=== PATIENT | male | born 1990 | race African-American/Black ===

== ENCOUNTER 2022-08-08 08:39 | Emergency (ER) | payer BC ==
[~2022-08-08] VITALS: Ht 185.4 cm; Wt 81.6 kg
--- NOTE | 2022-08-08 08:45 | NUR ---
RECEIVED PT 32 YRS MALE WALKING IN C/O abdominale pain satrted at 4 am this morning abdomine softe nonetender to touch
--- NOTE | 2022-08-08 08:51 | NUR ---
URINE COLLECTED AND SENT
[2022-08-08] MEDS ORDERED: ONDANSETRON HCL/PF 4 MG/2 ML VIAL ONE (08:59)
[2022-08-08] MEDS ORDERED: ONDANSETRON HCL/PF 4 MG/2 ML VIAL IVP ONE (09:00)
[2022-08-08] MEDS ORDERED: MORPHINE SULFATE INJ 4 MG/ML DISP.SYRIN ONE (09:00)
[2022-08-08] MEDS ORDERED: MORPHINE SULFATE INJ 2 MG/ML DISP.SYRIN IV ONE (09:00)
[2022-08-08] MEDS ORDERED: IV NS 0.9% 1,000 ML BAG IV ONE (09:00)
--- NOTE | 2022-08-08 09:00 | NUR ---
to ct scan of abdomine
--- NOTE | 2022-08-08 09:25 | NUR ---
INSERTED ANG CATHETER G 18 ON LT AC BLOOD DROW AND SENT TO LAB
--- NOTE | 2022-08-08 09:30 | NUR ---
abdminale US DONE AT BED SIDE
[2022-08-08 09:43] LABS: BASOPHILS % (AUTO) 0.3 % (0.0-2.0); HEMATOCRIT 42 % (39-51); HEMOGLOBIN 14.1 g/dL (13.5-17.5); LYMPHOCYTES % (AUTO) 11.1 % (20.0-44.0); MEAN CORPUSCULAR HGB CONC 34 g/dl (31.0-36.0); MEAN CORPUSCULAR VOLUME 90 fL (80-96); MONOCYTES # (AUTO) 0.8 K/uL (0.1-1.30); MONOCYTES % (AUTO) 8.4 % (2.0-12.0); NEUTROPHILS # (AUTO) 7.1 K/uL (1.8-8.9); NEUTROPHILS % (AUTO) 78.2 % (43.0-81.0); PLATELET COUNT (AUTO) 226 K/uL (150-450); RED BLOOD CELL COUNT(AUTO) 4.65 MIL/uL (4.5-6.0); WHITE BLOOD COUNT (AUTO) 9.1 K/uL (4.3-11.0)
[2022-08-08 09:54] LABS: CALCIUM, SERUM 9.4 mg/dL (8.5-10.1); POTASSIUM 3.7 mmol/L (3.5-5.1)
[2022-08-08 10:01] LABS: ALBUMIN 3.6 g/dL (3.4-5.0); BILIRUBIN,DIRECT 0.2 mg/dL (0.0-0.2); BILIRUBIN,TOTAL 0.7 mg/dL (0.2-1.0); TOTAL PROTEIN, SERUM 7.7 g/dL (6.4-8.2)
[2022-08-08 10:14] LABS: BILIRUBIN,URINE 1+ (NEGATIVE); COLOR,URINE YELLOW (YELLOW); LEUKOCYTE ESTERASE ,URINE NEGATIVE (NEGATIVE); NITRITE, URINE NEGATIVE (NEGATIVE); PROTEIN,URINE TRACE mg/dl (NEGATIVE); UGLUCOSE NEGATIVE (NEGATIVE); UROBILINOGEN,URINE 0.2 EU/dL (0.2)
[2022-08-08] MEDS ORDERED: CEFTRIAXONE 1 G in IV D5W 50 ML IV ONE (10:30)
[2022-08-08] MEDS ORDERED: AZITHROMYCIN 500 MG in IV D5W 250 ML IV ONE (10:30)
--- NOTE | 2022-08-08 10:40 | NUR ---
RESTING AND ASLEEPY ON AND OFF NO SOB AT THIS TIME
[2022-08-08 11:06] LABS: BACTERIA,URINE Few /HPF (None Seen); MUCUS,URINE Few /LPF (None Seen); SQUAMOUS EPITHELIAL CELL,UR Few /HPF (None Seen); WBC,URINE 0-2 /HPF (0-3)
--- NOTE | 2022-08-08 11:25 | NUR ---
DR. ROBERTS AT BED SIDE SPOOK WITH PT ABOUT PLAN OF CARE
[2022-08-08] MEDS ORDERED: DOXY100C2 PO (12:26)
[2022-08-08] MEDS ORDERED: IBUP-1955 PO (12:26)
[2022-08-08] MEDS ORDERED: ONDA4TAB5 PO (12:26)
--- NOTE | 2022-08-08 12:47 | NUR ---
RESTING AND COOMFORTABLE AT THIS TIME TIME
--- NOTE | 2022-08-08 13:20 | NUR ---
IV removed. Catheter intact and site benign. Pressure and 4x4 applied to site. No bleeding noted.
--- NOTE | 2022-08-08 13:25 | NUR ---
Patient discharged to home in stable condition. Written and verbal after care instructions given. Patient verbalizes understanding of instruction.
[2022-08-08 13:37] VITALS: BP 125/70
== END 2022-08-08 13:37 | disposition home or self-care (01) ==
LOC: ER 08:43
DX: N20.0 Calculus of kidney (principal); J18.1 Lobar pneumonia, unspecified organism; R07.89 Other chest pain
CPT/HCPCS: 99285; 74176; 96365; 96375; 76705; 71045; 96361; 85025; 80048; 83690; 80076; 81001; 36415; J2270; J0696; J2405; J7060; J7030 ×2; J0456